=== PATIENT | female | born 1970 | race Hispanic/Latino ===

== ENCOUNTER 2017-08-23 09:12 | Emergency (ER) | payer SELFPAY ==
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
[2017-08-23 11:31] LABS: Urine Blood NEGATIVE (NEG); Urine Glucose NEGATIVE (NEG); Urine Protein NEGATIVE (NEG); Urine Specific Gravity 1.025 (1.005-1.030); Urine pH 6.5 (5.0-7.0)
[2017-08-23] MEDS ORDERED: IBUPROFEN 200 MG TAB PO ONE (11:32)
[2017-08-23] MEDS ORDERED: IBUPROFEN 400 MG TAB ONE (11:32)
[2017-08-23] MEDS ORDERED: CYCLOBENZAPRINE 10 MG TAB ONE (11:32)
== END 2017-08-23 12:20 | disposition home or self-care (01) ==
LOC: ER 09:12
DX: M25.551 Pain in right hip (principal); M25.561 Pain in right knee; V43.62XA Car passenger injured in collision with other type car in traffic accident, initial encounter; Y93.9 Activity, unspecified; Y92.410 Unspecified street and highway as the place of occurrence of the external cause
CPT/HCPCS: 81003; 81025; 99284